=== PATIENT | female | born 1995 | race Caucasian/White ===

== ENCOUNTER 2024-03-27 20:24 | Emergency (ER) | payer MEDICAID, SELFPAY ==
[2024-03-27 20:25] VITALS: BP 138/90; PULSE 89; RESP 20; TEMP 36.9; O2SAT 100; BMI 29.0
[2024-03-27 21:00] VITALS: BP 130/89; PULSE 75; O2SAT 99
[2024-03-27 21:30] VITALS: BP 124/91; PULSE 68; O2SAT 99
--- NOTE | 2024-03-27 21:50 | ED_ITS ---
Discharge Plan Disposition Patient Disposition: Home, Self-Care Condition: Good Prescriptions Prescriptions: New ondansetron 4 mg tablet,disintegrating 4 mg PO Q6H PRN (Reason: nausea and vomiting) Qty: 10 0RF Referrals Follow up/Referrals: Kj Castellanos DO [Staff Physician] - See instructions (establish care) Provider,Referral, [Primary Care Provider] - See instructions Activity Restrictions/Add. Instructions Additional Instructions/Restrictions: You were evaluated in the ER and are appropriate for discharge at this time. Take the prescribed ondansetron (Zofran) if needed for nausea, vomiting. Drink plenty of water, you can also drink Gatorade, Pedialyte, or other electrolyte drinks. Make an appointment with Dr. Kj Castellanos's office for primary care. You have been referred to his office. You can also call [phone] to establish care with OB here. Return to the ER with new, worsening, or otherwise concerning symptoms Clinical Impressions Clinical Impression: Nausea, vomiting, and diarrhea Instructions Patient Instructions: DI for Diarrhea and Traveler's Diarrhea -- Adult, DI for Diarrhea and Traveler's Diarrhea -- Child, DI for Nausea -- Adult, DI for Nausea -- Child Print Language Print Language: Jordanian Discharge ED Provider: Ronak Montalvo General Adult HPI <Ronak Montalvo MD - Last Filed: 03/27/24 23:11> General Chief complaint: Nausea/Vomiting/Diarrhea Stated complaint: vomiting,nausea,weakness,lower back pain Time Seen by Provider: 03/27/24 21:15 Mode of Arrival: Ambulatory Source of Information: Patient Limitations: No Limitations Description of Symptoms (Recalled from ER Triage Doc. by RN): sunday night pt began having nausea and vomitting and diarrhea. pt is reported generalized pain all over. History of Present Illness HPI narrative: Please note that above description of symptoms, in this electronic medical record under categorization of recalled from ER triage doctor by RN are reflective of an initial nursing assessment, however, is not reflective of my full history and physical exam that was personally taken and clarified. Consequentially, this preceding description of symptoms, which may include the patient's categorized chief complaint in the EMR, do not reflect my personal clinical impression, and the ultimate description of history of present illness and patient stated complaints should be deferred to this section of the note. Unless stated otherwise or congruent with this section of the note, additional signs, symptoms, or incongruence should be interpreted as inaccurate with my clinical impression. Related Data Previous Rx's ?Medication ?Instructions ?Recorded ondansetron 4 mg disintegrating 4 mg PO Q6H PRN nausea and 03/28/24 tablet vomiting #10 tabs Allergies Allergy/AdvReac Type Severity Reaction Status Date / Time No Known Allergies Allergy Verified 03/27/24 22:09 [facility] <Ronak Montalvo MD - Last Filed: 03/27/24 23:11> [facility] Disclaimer: The information contained in this section may have been updated after the patient was seen, as this information can be updated by other users. Social History (Updated 03/27/24 @ 23:11 by Ronak Montalvo MD) Smoking Status: Current some day smoker alcohol intake: never current occupational status: employed Travel in the last 8 weeks: None <Ronak Montalvo MD - Last Filed: 03/27/24 23:11> ROS Obtained: Yes All systems reviewed & no additional complaints except as documented Physical Exam <Ronak Montalvo MD - Last Filed: 03/27/24 23:11> General General appearance: alert Head Head exam: atraumatic and normocephalic Eye Eye exam: Present normal appearance, PERRL and EOMI Neck Neck exam: Present normal inspection, full ROM and trachea midline Respiratory Respiratory exam: Absent respiratory distress, wheezes, stridor, accessory muscle use or prolonged expiratory phase Cardiovascular Cardiovascular exam: Present other (Pulses equal symmetric in upper and lower extremities) Abdominal Exam Abdominal exam: Present soft; Absent distention, tenderness or pulsatile mass Extremities Exam Extremities exam: Absent edema Neurological Exam Neurological exam: Present alert, oriented X3 and CN II-XII intact; Absent motor sensory deficit Skin Skin exam: Present warm and dry; Absent diaphoresis or erythema Medical Decision Making <Ronak Montalvo MD - Last Filed: 03/27/24 23:11> Medical Records Medical records reviewed: Yes I reviewed the patient's medical records. Screening: Per USPSTF and CDC recommendations, given the prevalence of disease in our region, it is our hospital?s policy to screen for HIV and viral Hepatitis for all patients aged 18 and over and those with ongoing risk factors. Mo Inquiry Pt receiving controlled substance: No Mo was queried for this patient: No Vital Signs: 03/27/24 20:25 03/27/24 21:00 03/27/24 21:30 Temperature 98.4 F Temperature Source Oral Pulse Rate 75 68 Pulse Rate [Right] 89 Respiratory Rate 20 Blood Pressure 130/89 124/91 H Blood Pressure [Right Arm] 138/90 Blood Pressure Mean [Right Arm] 106 02 Sat by Pulse Oximetry 100 99 99 Oxygen Delivery Method Room Air Lab Data Lab Results 03/27/24 22:15: WBC 10.7, RBC 5.15, Hgb 15.3, Hct 45.1, MCV 87.6, MCH 29.7, MCHC 33.9, RDW 13.9, Plt Count 267, MPV 7.3 L, Neut % (Auto) 81.2 H, Lymph % (Auto) 11.6, [place] % (Auto) 6.0, Eos % (Auto) 0.4, Baso % (Auto) 0.8, Neut # (Auto) 8.7 H, Lymph # (Auto) 1.2, [place] # (Auto) 0.6, Eos # (Auto) 0.0, Baso # (Auto) 0.1, Sodium 137, Potassium 3.7, Chloride 99, Carbon Dioxide 26, Anion Gap 15.7 H, BUN 15, Creatinine 0.80, Estimated Creat Clear 135, Estimated GFR 85, Est GFR ( Amer) 103, Glucose 106 H, Calcium 9.0, Total Bilirubin 0.6, AST 47 H, ALT 22, Alkaline Phosphatase 73, Total Protein 8.1, Albumin 4.9, Globulin 3.2, Albumin/Globulin Ratio 1.5, Lipase 39, HCG, Quant < 2, Urine Color Yellow, Urine Appearance Clear, Urine pH 6.0, Ur Specific [place] >= 1.030, Urine Protein 1+ A , Urine Glucose (UA) Negative, Urine Ketones 3+, Urine Blood 2+ A, Urine Nitrate Negative, Urine Bilirubin Negative, Urine Urobilinogen 0.2, Ur Leukocyte Esterase Negative, Urine RBC 5-10, Urine WBC 3-5, Ur Squamous Epith Cells 5-10, Urine Bacteria 2+, Urine Mucus 1+ 03/27/24 22:15 03/27/24 22:15 Orders (Tests/Meds): ED MEDICATIONS Discontinued Medications Generic Name Dose Route Start Last Admin Trade Name Freq PRN Reason Stop Dose Admin Sodium Chloride 1,000 mls @ 999 mls/hr 03/27/24 21:48 03/27/24 22:11 Sod Chlor 0.9% 1000ml Bag IV 03/27/24 22:48 999 mls/hr .Q1H1M ONE Administration Ondansetron HCl 4 mg 03/27/24 21:48 03/27/24 22:11 Ondansetron 4mg/2ml Vial IV 03/27/24 21:49 4 mg ONCE ONE Administration Promethazine HCl 12.5 mg 03/27/24 23:34 03/27/24 23:38 Promethazine Hcl 12.5mg Tablet PO 03/27/24 23:35 12.5 mg ONCE ONE Administration ORDERS Category Date Time Status CBC w/Auto Diff [Complete Blood Count Auto Diff] Stat Lab 03/27/24 22:15 Completed CMP [Comprehensive Metabolic Panel] Stat Lab 03/27/24 22:15 Completed HCG,Quantitative Stat Lab 03/27/24 22:15 Completed Lipase Stat Lab 03/27/24 22:15 Completed UA [Urinalysis and Microscopic] Stat Lab 03/27/24 22:15 Completed Urine Culture Stat Micro 03/27/24 22:15 Received Medical Decision Narrative: 28-year-old female no relevant medical history presenting with vomiting. Patient states that she started vomiting 2 days ago, has also been having diarrhea. Nonbloody, nonbilious vomiting and nonbloody diarrhea. Has had too numerous to count episodes of both. Able to tolerate sips of water, but has not had more than a bottle of water in the last 48 hours. Coming in because she is unable tolerate any p.o. intake and has been feeling rundown. No urinary symptoms, abdominal pain, flank pain, fevers or chills, or any other concern. History was obtained via conversation with patient. On arrival, patient hemodynamically stable, alert, oriented x4, appropriate, GCS 15, moving all extremities spontaneously, pupils equal and reactive to light. Full physical exam performed and significant for uncomfortable appearing female in no acute distress. Abdomen soft, nontender, nondistended. Negative Jones sign. Patient has had appendectomy. No flank tenderness. No overlying skin changes. Differential includes gastritis, gastroenteritis, , pancreatitis, among others. Patient placed on continuous cardiac monitoring and continuous pulse ox with initial blood pressure 138/9, heart rate 89, saturation 100% on room. Patient was given Zofran and fluids for symptomatic management and correction of underlying abnormalities. Workup independently interpreted and significant for nonactionable CBC or chemistry. Lipase negative. Urinalysis with ketones, no evidence of UTI. Prior to hCG and definitive reevaluation, care handed off to oncoming physician. [employer] disclaimer Much of this encounter note is an electronic content director spoken language to printed text. Electronic content director of the spoken language may permit errors. Although I have reviewed the note, some errors may still exist. <Vanita Johnson MD - Last Filed: 03/28/24 00:12> Vital Signs: 03/27/24 20:25 03/27/24 21:00 03/27/24 21:30 Temperature 98.4 F Temperature Source Oral Pulse Rate 75 68 Pulse Rate [Right] 89 Respiratory Rate 20 Blood Pressure 130/89 124/91 H Blood Pressure [Right Arm] 138/90 Blood Pressure Mean [Right Arm] 106 02 Sat by Pulse Oximetry 100 99 99 Oxygen Delivery Method Room Air Lab Data Lab Results 03/27/24 22:15: WBC 10.7, RBC 5.15, Hgb 15.3, Hct 45.1, MCV 87.6, MCH 29.7, MCHC 33.9, RDW 13.9, Plt Count 267, MPV 7.3 L, Neut % (Auto) 81.2 H, Lymph % (Auto) 11.6, [place] % (Auto) 6.0, Eos % (Auto) 0.4, Baso % (Auto) 0.8, Neut # (Auto) 8.7 H, Lymph # (Auto) 1.2, [place] # (Auto) 0.6, Eos # (Auto) 0.0, Baso # (Auto) 0.1, Sodium 137, Potassium 3.7, Chloride 99, Carbon Dioxide 26, Anion Gap 15.7 H, BUN 15, Creatinine 0.80, Estimated Creat Clear 135, Estimated GFR 85, Est GFR ( Amer) 103, Glucose 106 H, Calcium 9.0, Total Bilirubin 0.6, AST 47 H, ALT 22, Alkaline Phosphatase 73, Total Protein 8.1, Albumin 4.9, Globulin 3.2, Albumin/Globulin Ratio 1.5, Lipase 39, HCG, Quant < 2, Urine Color Yellow, Urine Appearance Clear, Urine pH 6.0, Ur Specific [place] >= 1.030, Urine Protein 1+ A , Urine Glucose (UA) Negative, Urine Ketones 3+, Urine Blood 2+ A, Urine Nitrate Negative, Urine Bilirubin Negative, Urine Urobilinogen 0.2, Ur Leukocyte Esterase Negative, Urine RBC 5-10, Urine WBC 3-5, Ur Squamous Epith Cells 5-10, Urine Bacteria 2+, Urine Mucus 1+ Orders (Tests/Meds): ED MEDICATIONS Discontinued Medications Generic Name Dose Route Start Last Admin Trade Name Jh PRN Reason Stop Dose Admin Sodium Chloride 1,000 mls @ 999 mls/hr 03/27/24 21:48 03/27/24 22:11 Sod Chlor 0.9% 1000ml Bag IV 03/27/24 22:48 999 mls/hr .Q1H1M ONE Administration Ondansetron HCl 4 mg 03/27/24 21:48 03/27/24 22:11 Ondansetron 4mg/2ml Vial IV 03/27/24 21:49 4 mg ONCE ONE Administration Promethazine HCl 12.5 mg 03/27/24 23:34 03/27/24 23:38 Promethazine Hcl 12.5mg Tablet PO 03/27/24 23:35 12.5 mg ONCE ONE Administration ORDERS Category Date Time Status CBC w/Auto Diff [Complete Blood Count Auto Diff] Stat Lab 03/27/24 22:15 Completed CMP [Comprehensive Metabolic Panel] Stat Lab 03/27/24 22:15 Completed HCG,Quantitative Stat Lab 03/27/24 22:15 Completed Lipase Stat Lab 03/27/24 22:15 Completed UA [Urinalysis and Microscopic] Stat Lab 03/27/24 22:15 Completed Urine Culture Stat Micro 03/27/24 22:15 Received Medical Decision Narrative: 28-year-old female no relevant medical history presenting with vomiting. Patient states that she started vomiting 2 days ago, has also been having diarrhea. Nonbloody, nonbilious vomiting and nonbloody diarrhea. Has had too numerous to count episodes of both. Able to tolerate sips of water, but has not had more than a bottle of water in the last 48 hours. Coming in because she is unable tolerate any p.o. intake and has been feeling rundown. No urinary symptoms, abdominal pain, flank pain, fevers or chills, or any other concern. History was obtained via conversation with patient. On arrival, patient hemodynamically stable, alert, oriented x4, appropriate, GCS 15, moving all extremities spontaneously, pupils equal and reactive to light. Full physical exam performed and significant for uncomfortable appearing female in no acute distress. Abdomen soft, nontender, nondistended. Negative Jones sign. Patient has had appendectomy. No flank tenderness. No overlying skin changes. Differential includes gastritis, gastroenteritis, , pancreatitis, among others. Patient placed on continuous cardiac monitoring and continuous pulse ox with initial blood pressure 138/9, heart rate 89, saturation 100% on room. Patient was given Zofran and fluids for symptomatic management and correction of underlying abnormalities. Workup independently interpreted and significant for nonactionable CBC or chemistry. Lipase negative. Urinalysis with ketones, no evidence of UTI. Prior to hCG and definitive reevaluation, care handed off to oncoming physician. [employer] disclaimer Much of this encounter note is an electronic content director spoken language to printed text. Electronic content director of the spoken language may permit errors. Although I have reviewed the note, some errors may still exist. Johnson: Upon my assumption of care patient is stable. She states she is having mild nausea again. She has only been able to tolerate a sip of water. Oral Phenergan was administered to the patient. I reviewed labs which are reassuring with no leukocytosis, no actionable abnormalities on CMP, ketonuria consistent with mild dehydration and volume losses but no findings of urinary tract infection. test negative On reevaluation after Phenergan, patient has tolerated oral intake, drinking most of a bottle of water. She states she feels improved. She is appropriate for discharge at this time. Patient preferred to be prescribed Zofran since Phenergan made her sleepy. I believe this is appropriate. Patient does not have primary care since she recently moved here, I referred her to Dr. Castellanos to establish care. Patient was given instructions on symptomatic management, follow up instructions, and return precautions for the emergency department. Patient indicated understanding and was discharged in stable condition. Critical Care <Ronak Montalvo MD - Last Filed: 03/27/24 23:11> Critical Care Time Critical Care Time: No
[2024-03-27] MEDS: 0.9 % SODIUM CHLORIDE 1000ML 1,000 ML 999 ML IV (22:11)
[2024-03-27] MEDS: ONDANSETRON 4MG/2ML VIAL 4 MG IV (22:11)
[2024-03-27 22:24] LABS: Microscopic, Urine URINE MICROSCOPIC (MICROSCOPIC)
[2024-03-27 22:28] LABS: Appearance,Urine CLEAR (Clear); Blood, Urine 2+ (Negative); Color,Urine YELLOW (Yellow); Glucose,Urine (UA) Negative (Negative); Ketones,Urine 3+ (Negative); Leukocyte Esterase,Urine Negative (Negative); Nitrate,Urine Negative (Negative); Protein,Urine 1+ (Negative); Specific Gravity, Urine >= 1.030 (1.005-1.030); Urobilinogen,Urine 0.2 EU/dl (0.2)
[2024-03-27 22:29] LABS: Bilirubin,Urine Negative (Negative)
[2024-03-27 22:36] LABS: Basophils # 0.1 K/mm3 (0-0.2); Basophils % 0.8 % (0.1-2.0); Eosinophils % 0.4 % (0.1-12.0); Hematocrit 45.1 % (37.0-47.0); Hemoglobin 15.3 g/dL (12.2-16.2); Lymphocytes # 1.2 K/mm3 (0.7-4.5); Lymphocytes % 11.6 % (10-50); Mean Corpuscular HGB Conc 33.9 g/dL (31.8-35.4); Mean Corpuscular Hemoglobin 29.7 pg (27.0-31.2); Mean Corpuscular Volume 87.6 fl (81-99); Mean Platelet Volume 7.3 fl (7.4-10.4); Monocytes # 0.6 K/mm3 (0.1-1.0); Neutrophils # 8.7 K/mm3 (1.8-7.8); Neutrophils % 81.2 % (37.0-80.0); Platelet Count 267 K/mm3 (142-424); Red Blood Count 5.15 M/mm3 (4.20-5.40); Red Cell Distribution Width 13.9 % (11.5-17.5); White Blood Count 10.7 K/mm3 (4.8-10.8)
[2024-03-27 22:53] LABS: Bacteria,Urine 2+ /lpf; Mucus,Urine 1+ /lpf
[2024-03-27 22:54] LABS: Albumin Level 4.9 g/dl (3.5-5.0); Chloride 99 mmol/L (98-107); Potassium 3.7 mmoL/L (3.5-5.1); Sodium 137 mmol/L (136-145)
[2024-03-27 22:56] LABS: Alanine Aminotransferase 22 U/L (12-78); Aspartate Amino Transferase 47 U/L (14-36); Bilirubin,Total 0.6 mg/dl (0.2-1.3); Blood Urea Nitrogen 15 mg/dl (7-17); Creatinine Clearance Estimated 135 mL/min (50-200); Estimated Glomerular Filt Rate 85 ml/min (>60); GFR (African American) 103 ML/MIN (>60)
[2024-03-27 22:57] LABS: Albumin/Globulin Ratio 1.5 (1.1-1.8); Alkaline Phosphatase 73 U/L (38-126); Anion Gap 15.7 mEq/L (5-15); Carbon Dioxide 26 mmol/L (22.0-30.0); Globulin 3.2 g/dL (1.3-3.2); Glucose 106 mg/dl (74-100); Lipase 39 U/L (23-300); Total Protein,Serum 8.1 g/dl (6.3-8.2)
[2024-03-27 23:16] LABS: HCG,Quantitative < 2 mIU/ml (0-5.42)
[2024-03-27] MEDS: PROMETHAZINE HCL 12.5MG TABLET 12.5 MG PO (23:38)
[2024-03-28 00:10] VITALS: BP 135/76; PULSE 66; RESP 20; TEMP 36.8; O2SAT 98
== END 2024-03-28 00:16 | disposition home or self-care (01) ==
PROVIDERS: Emergency Provider Emergency Medicine
DX: R11.2 Nausea with vomiting, unspecified (principal); R19.7 Diarrhea, unspecified
CPT/HCPCS: 80053; 81001; 83690; 84702; 85025; 87086; 96361; 96374; 99284; J2405; J7030

== ENCOUNTER 2024-04-06 23:54 | Emergency (ER) | payer MEDICAID, SELFPAY ==
[2024-04-06 23:55] VITALS: BP 151/86; PULSE 84; RESP 16; TEMP 36.5; O2SAT 99; BMI 29.0
--- NOTE | 2024-04-06 23:56 | [facility].EDGENADL ---
Discharge Plan Prescriptions Prescriptions: New ondansetron HCl 4 mg tablet 4 mg PO Q8H PRN (Reason: nausea and vomiting) 5 Days Qty: 30 0RF Referrals Follow up/Referrals: Provider,Referral, [Primary Care Provider] - See instructions Activity Restrictions/Add. Instructions Additional Instructions/Restrictions: Please follow-up with your primary care doctor for recheck of your liver enzymes, they are mildly elevated today. Please take Zofran as needed for nausea and vomiting, consider [id number] Tums, Maalox, Pepto-Bismol etc. Please return to the emergency department if you develop any new or worsening symptoms or become concerned for your health. Clinical Impressions Clinical Impression: Epigastric abdominal pain, Elevated liver enzymes Instructions Patient Instructions: DI for Acute Abdominal Pain Print Language Print Language: Kinyarwanda Discharge ED Provider: Matt Sol Adult HPI General Chief complaint: Abdominal Pain Stated complaint: pain in abd Time Seen by Provider: 04/06/24 23:56 History of Present Illness HPI narrative: 28-year-old female presents for epigastric pressure sensation. She reports that she had a GI illness a couple weeks ago that lasted approximately 1 week with associated nausea vomiting and diarrhea. She has been doing better for the last week. Tonight she developed some epigastric discomfort with some nausea but no vomiting. She denies any right upper quadrant pain she denies any flank pain denies any dysuria, urinary frequency urgency etc. No fever at home. No prior surgical history. Related Data Previous Rx's ?Medication ?Instructions ?Recorded ondansetron HCl 4 mg tablet 4 mg PO Q8H PRN nausea and 04/07/24 vomiting 5 days #30 tabs Allergies Allergy/AdvReac Type Severity Reaction Status Date / Time No Known Allergies Allergy Verified 03/27/24 22:09 [facility] Disclaimer: The information contained in this section may have been updated after the patient was seen, as this information can be updated by other users. Social History Smoking Status: Never smoker alcohol intake: never current occupational status: employed Travel in the last 8 weeks: None ROS Obtained: Yes All systems reviewed & no additional complaints except as documented Physical Exam General General appearance: alert and in no apparent distress Head Head exam: atraumatic and normocephalic Eye Eye exam: Present normal appearance, PERRL and EOMI ENT ENT exam: Present normal oropharynx and normal external ear exam Neck Neck exam: Present normal inspection and full ROM Chest Chest inspection: Present normal inspection and symmetric chest wall rise; Absent tenderness Respiratory Respiratory exam: Present normal lung sounds bilaterally; Absent respiratory distress Cardiovascular Cardiovascular exam: Present regular rate and normal rhythm Abdominal Exam Abdominal exam: Present soft and tenderness (Minimal, epigastric. No right upper quadrant tenderness); Absent distention or guarding Extremities Exam Extremities exam: Present normal inspection; Absent edema or joint swelling Back Exam Back exam: Present normal inspection; Absent tenderness Neurological Exam Neurological exam: Present alert and oriented X3; Absent motor sensory deficit Psychiatric Psychiatric exam: Present normal affect and normal mood Skin Skin exam: Present warm, dry and normal color Lymphatic Lymphatic Findings: no adenopathy Medical Decision Making Medical Records Medical records reviewed: Yes I reviewed the patient's medical records. Screening: Per USPSTF and CDC recommendations, given the prevalence of disease in our region, it is our hospital?s policy to screen for HIV and viral Hepatitis for all patients aged 18 and over and those with ongoing risk factors. Mo Inquiry Pt receiving controlled substance: No Mo was queried for this patient: No Vital Signs: 04/06/24 23:55 04/07/24 00:13 04/07/24 00:56 Temperature 97.7 F 97.9 F Temperature Source Oral Oral Pulse Rate 69 67 Pulse Rate [Left] 84 Respiratory Rate 16 16 Blood Pressure 129/86 134/80 Blood Pressure [Right Arm] 151/86 H Blood Pressure Mean [Right Arm] 107 Blood Pressure Source Automatic Cuff Blood Pressure Source [Right Arm] Automatic Cuff Blood Pressure Position Supine Blood Pressure Position [Right Arm] Sitting 02 Sat by Pulse Oximetry 99 97 Oxygen Delivery Method Room Air Room Air Lab Data Lab results reviewed: Yes I reviewed the patient's lab results. Lab Results 04/07/24 00:08: WBC 8.0, RBC 4.78, Hgb 13.9, Hct 40.9, MCV 85.5, MCH 29.1, MCHC 34.0, RDW 14.1, Plt Count 315, MPV 7.0 L, Neut % (Auto) 50.9, Lymph % (Auto) 39.8, [place] % (Auto) 6.8, Eos % (Auto) 1.5, Baso % (Auto) 1.0, Neut # (Auto) 4.1, Lymph # (Auto) 3.2, [place] # (Auto) 0.5, Eos # (Auto) 0.1, Baso # (Auto) 0.1, Sodium 140, Potassium 3.8, Chloride 105, Carbon Dioxide 25, Anion Gap 13.8, BUN 4 L, Creatinine 0.70, Estimated Creat Clear 154, Estimated GFR 100, Est GFR ( Amer) 121, Glucose 107 H, Calcium 8.9, Total Bilirubin 0.5, AST 104 H, ALT 148 H, Alkaline Phosphatase 83, Total Protein 7.1, Albumin 4.3, Globulin 2.8, Albumin/Globulin Ratio 1.5, Lipase 131, Serum HCG, Qual Negative, HIV 1&2 Antibody Rapid Nonreactive 04/07/24 00:08 04/07/24 00:08 Orders (Tests/Meds): ED MEDICATIONS Discontinued Medications Generic Name Dose Route Start Last Admin Trade Name Freq PRN Reason Stop Dose Admin Acetaminophen 1,000 mg 04/06/24 23:59 04/07/24 00:08 Acetaminophen 500mg Tab PO 04/07/24 00:00 1,000 mg ONCE ONE Administration Belladonna Alkaloids 60 ml 04/06/24 23:59 04/07/24 00:07 [place]onna Alkaloids 60 Ml Ml PO 04/07/24 00:00 60 ml ONCE ONE Administration Ondansetron HCl 4 mg 04/06/24 23:59 04/07/24 00:07 Ondansetron 4mg/2ml Vial IV 04/07/24 00:00 4 mg ONCE ONE Administration ORDERS Category Date Time Status POCUS Point of Care (ER Only) Stat Exams 04/07/24 00:35 Ordered CBC w/Auto Diff [Complete Blood Count Auto Diff] Stat Lab 04/07/24 00:08 Completed CMP [Comprehensive Metabolic Panel] Stat Lab 04/07/24 00:08 Completed HCG Qualitative, Serum Stat Lab 04/07/24 00:08 Completed HIV (1&2) Antibody Rapid Stat Lab 04/07/24 00:08 Completed Hep C Ab with Reflex to RNA Stat Lab 04/07/24 00:08 Received Hepatitis Panel Stat Lab 04/07/24 00:08 Received Lipase Stat Lab 04/07/24 00:08 Completed Medical Decision Narrative: 28-year-old female, recently got over a weeklong GI illness, presents with epigastric discomfort this evening.. History was obtained via interactive discussion with patient, family. On arrival, patient is [afebrile, hemodynamically stable, satting appropriately, alert, oriented x4, GCS 15], moving all extremities spontaneously. Full physical exam performed and significant for minimal epigastric tenderness. No right upper quadrant tenderness. Differential includes but is not limited to gastritis, gastroenteritis, peptic ulcer disease, cholecystitis, choledocholithiasis,. Patient was given p.o. Tylenol, GI cocktail and IV Zofran for symptomatic management and correction of underlying abnormalities. Workup initiated including CBC CMP test lipase. Bedside ultrasound was performed by me and shows mildly enlarged gallbladder without stones or sludge, no pericholecystic fluid, no gallbladder wall thickening. On re-evaluation, patient reports marked symptomatic improvement. Laboratory workup independently interpreted by me and significant for normal lipase, negative , mildly elevated AST and ALT, normal alk phos, normal bilirubin, otherwise unremarkable. No leukocytosis.. CT abdomen and pelvis was considered, but deemed unnecessary due to negative ultrasound, negative lipase, benign abdominal exam.. Given patient history, exam and workup, patient's presentation most likely represents gastric irritation in the setting of recent GI illness. The underlying etiology of the patient's mild LFT elevation is unclear. No evidence of acute biliary pathology on labs or bedside ultrasound. A acute hep panel was sent. Patient was encouraged to follow-up with PCP for recheck of labs and further assessment. Return precautions given. Discharged with prescription for Zofran. Procedures Risk/Benefits of Procedure(s) Were Explained: Yes Limited Ultrasound Indication:: Limited RUQ ultrasound Indication: Epigastric abdominal pain Identified structures: -Gallbladder -Gallbladder wall -Liver Findings: Sonographic Jones sign: Absent Gallstones: Absent Sludge: Absent Pericholecystic fluid: Absent Maximal GB wall thickness (mm): [normal is </= 3mm] Normal Common bile duct width (mm): [normal is </= 6mm] Unable to visualize Gallbladder width (cm): [normal is < 4cm] Grossly normal Gallbladder length (cm): [normal is < 10cm] Grossly mildly enlarged Impression: Normal gallbladder without evidence of cholecystitis Images were saved to permanent archive The study was technically adequate CPT 70289-00 This study was performed by me, and I personally interpreted all images/videos. Critical Care Critical Care Time Critical Care Time: No
[2024-04-07] MEDS: BELLADONNA ALKALOIDS 60 ML ML PO (00:07)
[2024-04-07] MEDS: ONDANSETRON 4MG/2ML VIAL 4 MG IV (00:07)
[2024-04-07] MEDS: ACETAMINOPHEN 500MG TAB 1000 MG PO (00:08)
[2024-04-07 00:13] VITALS: BP 129/86; PULSE 69; O2SAT 97
[2024-04-07 00:20] LABS: Basophils # 0.1 K/mm3 (0-0.2); Eosinophils # 0.1 K/mm3 (0.0-0.4); Eosinophils % 1.5 % (0.1-12.0); Hematocrit 40.9 % (37.0-47.0); Hemoglobin 13.9 g/dL (12.2-16.2); Lymphocytes # 3.2 K/mm3 (0.7-4.5); Lymphocytes % 39.8 % (10-50); Mean Corpuscular Hemoglobin 29.1 pg (27.0-31.2); Mean Corpuscular Volume 85.5 fl (81-99); Monocytes # 0.5 K/mm3 (0.1-1.0); Monocytes % 6.8 % (1.7-9.3); Neutrophils # 4.1 K/mm3 (1.8-7.8); Neutrophils % 50.9 % (37.0-80.0); Platelet Count 315 K/mm3 (142-424); Red Blood Count 4.78 M/mm3 (4.20-5.40); Red Cell Distribution Width 14.1 % (11.5-17.5)
[2024-04-07 00:21] LABS: Albumin Level 4.3 g/dl (3.5-5.0); Chloride 105 mmol/L (98-107); Potassium 3.8 mmoL/L (3.5-5.1); Sodium 140 mmol/L (136-145)
[2024-04-07 00:24] LABS: Alanine Aminotransferase 148 U/L (12-78); Albumin/Globulin Ratio 1.5 (1.1-1.8); Alkaline Phosphatase 83 U/L (38-126); Anion Gap 13.8 mEq/L (5-15); Aspartate Amino Transferase 104 U/L (14-36); Bilirubin,Total 0.5 mg/dl (0.2-1.3); Blood Urea Nitrogen 4 mg/dl (7-17); Carbon Dioxide 25 mmol/L (22.0-30.0); Creatinine Clearance Estimated 154 mL/min (50-200); Estimated Glomerular Filt Rate 100 ml/min (>60); GFR (African American) 121 ML/MIN (>60); Globulin 2.8 g/dL (1.3-3.2); Lipase 131 U/L (23-300); Total Protein,Serum 7.1 g/dl (6.3-8.2)
[2024-04-07 00:25] LABS: Calcium 8.9 mg/dl (8.4-10.2); Glucose 107 mg/dl (74-100)
[2024-04-07 00:30] LABS: HCG Qualitative, Serum Negative (Negative)
[2024-04-07 00:56] VITALS: BP 134/80; PULSE 67; RESP 16; TEMP 36.6; O2SAT 97
[2024-04-07 01:29] LABS: HIV (1&2) Antibody Rapid NONREACTIVE (NONREACTIVE)
[2024-04-08 08:21] LABS: HBsAg Screen Negative (Negative); HCV Ab Non Reactive (Non Reactive); Hep A Ab, IGM Negative (Negative); Hep B Core Ab, IgM Negative (Negative)
== END 2024-04-07 00:56 | disposition home or self-care (01) ==
PROVIDERS: Emergency Provider Emergency Medicine
DX: R10.13 Epigastric pain (principal); R74.8 Abnormal levels of other serum enzymes; R11.0 Nausea
CPT/HCPCS: 80053; 80074; 83690; 84703; 85025; 86803; 87389; 96374; 99283; J2405

== ENCOUNTER 2024-04-15 15:43 | Outpatient (CLI) | payer MEDICAID, SELFPAY ==
[2024-04-15 17:02] LABS: Chloride 103 mmol/L (98-107)
[2024-04-15 17:03] LABS: Albumin Level 4.8 g/dl (3.5-5.0); Potassium 3.9 mmoL/L (3.5-5.1); Sodium 139 mmol/L (136-145)
[2024-04-15 17:05] LABS: Alanine Aminotransferase 78 U/L (12-78); Aspartate Amino Transferase 29 U/L (14-36); Blood Urea Nitrogen 7 mg/dl (7-17); Estimated Glomerular Filt Rate 119 ml/min (>60); GFR (African American) 144 ML/MIN (>60)
[2024-04-15 17:06] LABS: Albumin/Globulin Ratio 1.8 (1.1-1.8); Alkaline Phosphatase 76 U/L (38-126); Anion Gap 14.9 mEq/L (5-15); Bilirubin,Total 0.5 mg/dl (0.2-1.3); Calcium 9.3 mg/dl (8.4-10.2); Carbon Dioxide 25 mmol/L (22.0-30.0); Globulin 2.7 g/dL (1.3-3.2); Glucose 78 mg/dl (74-100); Total Protein,Serum 7.5 g/dl (6.3-8.2)
== END 2024-04-15 23:59 | disposition home or self-care (01) ==
LOC: LAB.DROPOF 04-16 07:09
PROVIDERS: PCP Internal Medicine; Visit Provider Internal Medicine
DX: Z00.00 Encounter for general adult medical examination without abnormal findings (principal)
CPT/HCPCS: 80053

== ENCOUNTER 2024-06-01 16:30 | Emergency (ER) | payer BC, MEDICAID, SELFPAY ==
[2024-06-01 16:51] VITALS: BP 126/73; PULSE 84; RESP 18; TEMP 36.6; O2SAT 99; BMI 30.7
--- NOTE | 2024-06-01 16:59 | EXP.UTC ---
Discharge Plan Disposition Patient Disposition: Home, Self-Care Condition: Good Prescriptions Prescriptions: New phenazopyridine 200 mg Tablet 200 mg PO TID 2 Days Qty: 6 0RF ondansetron 4 mg Tablet,Disintegrating 4 mg PO Q8H PRN (Reason: Nausea) Qty: 12 0RF nitrofurantoin monohyd/m-cryst [Macrobid] 100 mg Capsule 100 mg PO BID Qty: 10 0RF Rx Instructions: must administer with a meal/food No Action hydroxyzine HCl 25 mg tablet 75 mg PO TID PRN (Reason: anxiety) Qty: 30 2RF Rx Instructions: 1-3 tablets per dose as needed for anxiety ondansetron HCl 4 mg tablet 4 mg PO Q8H PRN (Reason: nausea and vomiting) 5 Days Qty: 30 0RF rizatriptan 10 mg tablet,disintegrating 10 mg PO ONCE PRN (Reason: migraine headache) Qty: 30 2RF Referrals Follow up/Referrals: Kj Castellanos DO [Primary Care Provider] - See instructions Activity Restrictions/Add. Instructions Additional Instructions/Restrictions: Drink plenty of fluids. Take tylenol or ibuprofen for pain or fever. Take the medications as directed. Follow up with your regular doctor. GO TO THE ER FOR ANY WORSENING SYMPTOMS The pyridium will make your urine turn orange, this is an expected side effect. It will stain your clothes if it comes into contact with them. We will culture the urine. That will tell what bacteria is causing your infection and which antibiotics will treat it best.This test takes 3 days to complete. Clinical Impressions Clinical Impression: UTI (urinary tract infection) Instructions Patient Instructions: Urinary Tract Infection, DI for Urinary Tract Infection (UTI), Ondansetron, Phenazopyridine, Nitrofurantoin, Fluconazole Print Language Print Language: French Discharge ED Provider: Andi Fraga [facility] General Stated complaint: burning with urination Mode of Arrival: Ambulatory Source of Information: Patient Time Seen by Provider: 06/01/24 16:59 Description of Symptoms (Recalled from Triage Doc. by RN): UTI S/S HEENT Symptoms (Recalled from RN notes): No Resp Symptoms (Recalled from RN notes): No Skin Symptoms (Recalled from RN notes): No MS Symptoms (Recalled from RN notes): No Functional Status (Recalled from RN notes): WNL History of Present Illness Provider Complaint: she states that for the past 2 days she has been having worsening dysuria, urinary frequency and hesitancy. Related Data Previous Rx's ?Medication ?Instructions ?Recorded hydroxyzine HCl 25 mg tablet 75 mg (3 x 25 mg) PO TID PRN 04/15/24 anxiety #30 tabs ondansetron HCl 4 mg tablet 4 mg PO Q8H PRN nausea and 04/15/24 vomiting 5 days #30 tabs rizatriptan 10 mg disintegrating 10 mg PO ONCE PRN migraine 04/15/24 tablet headache #30 tabs nitrofurantoin 100 mg PO BID #10 caps 06/01/24 monohydrate/macrocrystals 100 mg capsule (Macrobid) ondansetron 4 mg disintegrating 4 mg PO Q8H PRN Nausea #12 tabs 06/01/24 tablet phenazopyridine 200 mg tablet 200 mg PO TID 2 days #6 tabs 06/01/24 Allergies Allergy/AdvReac Type Severity Reaction Status Date / Time No Known Allergies Allergy Verified 04/15/24 15:11 Worker's Comp Is this a Worker's Comp case?: No [facility] Disclaimer: The information contained in this section may have been updated after the patient was seen, as this information can be updated by other users. Surgical History (Updated 04/15/24 @ 15:13 by BON Jacobsen) Hx of wisdom tooth extraction Hx of appendectomy History of Social History (Updated 04/15/24 @ 15:14 by BON Jacobsen) Smoking Status: Never smoker alcohol intake: current alcohol intake frequency: holidays/special occasions only substance use type: denies use current occupational status: employed Travel in the last 8 weeks: None Have you lived/traveled outside [place] in past 30 days?: No Contact w/someone who lives/traveled outside [place] past 30 days?: No Exposure to someone with infectious disease in past 14 days?: No Do you have a fever (greater than 100.4 F or 38 C)?: No Have you tested positive for COVID-19: No Exposed to someone with COVID-19 in past 14 days?: No Do you have a sore throat?: No Do you have a cough?: No Do you have any weakness?: No Do you have any diarrhea?: No Are you experiencing any unusual bleeding?: No Do you have any muscle aches/pain?: No Do you have any abdominal pain?: No Are you experiencing loss of taste or smell?: No ROS Obtained: Yes All systems reviewed & no additional complaints except as documented Constitutional Constitutional: Reports system reviewed and no additional complaints, except as documented, Denies chills and Denies fever(s) Eyes Eyes: Denies eye discharge ENT Ears, Nose, Mouth, and Throat: Denies dysphagia, Denies sore throat and Denies throat swelling Cardiovascular Cardiovascular: Denies chest pain and Denies dyspnea Respiratory Respiratory: Denies chest congestion, Denies cough and Denies dyspnea Gastrointestinal Gastrointestingal: Denies abdominal pain, constipation, diarrhea, dysphagia, nausea or vomiting Genitourinary Female Genitourinary: Reports as per HPI, Reports dysuria, Reports urinary frequency, Denies urinary incontinence, Reports urinary hesitancy and Reports urinary urgency Musculoskeletal Musculoskeletal: Denies arthralgias and Reports back pain Integumentary/Breasts Skin/Breast: Denies rash Neurologic Neurologic: Denies paresthesias Allergic/Immunologic Allergic/Immunologic: Denies throat swelling Physical Exam General General appearance: alert and in no apparent distress Head Head exam: atraumatic, normocephalic and normal inspection Eye Eye exam: Present normal appearance, PERRL and EOMI ENT ENT exam: Present normal exam, normal oropharynx, mucous membranes moist, TM's normal bilaterally and normal external ear exam Neck Neck exam: Present normal inspection, full ROM and trachea midline; Absent meningismus or lymphadenopathy Chest Chest inspection: Present normal inspection and symmetric chest wall rise; Absent tenderness Respiratory Respiratory exam: Present normal lung sounds bilaterally; Absent respiratory distress Cardiovascular Cardiovascular exam: Present regular rate and normal rhythm; Absent JVD Abdominal Exam Abdominal exam: Present soft and normal bowel sounds; Absent distention, tenderness or guarding Extremities Exam Extremities exam: Present normal inspection, full ROM and normal capillary refill; Absent calf tenderness Back Exam Back exam: Present normal inspection and full ROM; Absent tenderness, CVA tenderness (R), CVA tenderness (L) or muscle spasm Neurological Exam Neurological exam: Present alert and oriented X3 Psychiatric Psychiatric exam: Present normal affect and normal mood Skin Skin exam: Present warm, dry, intact and normal color Lymphatic Lymphatic Findings: no adenopathy Medical Decision Making Medical Records Medical records reviewed: No I reviewed the patient's medical records. Screening: Per USPSTF and CDC recommendations, given the prevalence of disease in our region, it is our hospital?s policy to screen for HIV and viral Hepatitis for all patients aged 18 and over and those with ongoing risk factors. Mo Inquiry Pt receiving controlled substance: No Vital Signs: 06/01/24 16:51 Temperature 97.9 F Temperature Source Oral Pulse Rate [Left Radial] 84 Respiratory Rate 18 Blood Pressure [Left Arm] 126/73 Blood Pressure Mean [Left Arm] 90 02 Sat by Pulse Oximetry 99 Lab Data Lab results reviewed: Yes I reviewed the patient's lab results.
[2024-06-01 17:01] LABS: Apearance,Urine Cloudy (Clear); Bilirubin,Urine Negative (Negative); Blood, Urine 3+ (Negative); Color,Urine Yellow (Yellow); Glucose,Urine (UA) Negative (Negative); Ketones,Urine Negative (Negative); PH,Urine 5.5 (5.0-8.5); Protein,Urine Negative (Negative); Specific Gravity, Urine 1.025 (1.005-1.030); UTC Leukocyte Esterase,Urine 1+ (Negative); UTC Nitrate,Urine Negative (Negative); Urobilinogen,Urine 0.2 EU/dl (0.2)
[2024-06-01] MEDS: LIDOCAINE 1% 5ML PF VIAL IM (17:40)
[2024-06-01] MEDS: cefTRIAXone 1GM VIAL 1 GM IM (17:40)
[2024-06-01 18:09] VITALS: BP 126/73; PULSE 84; RESP 18; TEMP 36.6
== END 2024-06-01 18:19 | disposition home or self-care (01) ==
PROVIDERS: Emergency Provider Nurse Practitioner Family; PCP Internal Medicine
DX: N39.0 Urinary tract infection, site not specified (principal)
CPT/HCPCS: 81003; 87086; 87088; 87186; 99213; G0381; J0696

== ENCOUNTER 2024-09-18 20:44 | Emergency (ER) | payer MEDICAID, SELFPAY ==
[2024-09-18 20:51] VITALS: BP 137/76; PULSE 59; RESP 16; TEMP 36.6; O2SAT 100; BMI 31.4
--- NOTE | 2024-09-18 20:56 | PC.NURSE ---
Report recieved form Christopher RUIZ Pt has rash to legs. Skin pink warm and dry Resp full and easy Speech clear and appropriate.
--- NOTE | 2024-09-18 21:02 | ED_ITS ---
Discharge Plan Disposition Patient Disposition: Home, Self-Care Condition: Good Prescriptions Prescriptions: New cetirizine 10 mg capsule 10 mg PO DAILY Qty: 15 0RF hydrocortisone [Anti-Itch (HC)] 1 % cream 1 applic topical BID PRN (Reason: rash) Qty: 28.35 0RF No Action hydroxyzine HCl 25 mg tablet 75 mg PO TID PRN (Reason: anxiety) Qty: 30 2RF Rx Instructions: 1-3 tablets per dose as needed for anxiety rizatriptan 10 mg tablet,disintegrating 10 mg PO ONCE PRN (Reason: migraine headache) Qty: 30 2RF Referrals Follow up/Referrals: Kj Castellanos DO [Primary Care Provider] - See instructions Activity Restrictions/Add. Instructions Additional Instructions/Restrictions: Please follow up with your primary care provider in 2-3 days. Please return to ED if your symptoms worsen, change in location, change in severity, new symptoms develop or if you become concerned for your health. Clinical Impressions Clinical Impression: Contact dermatitis Print Language Print Language: Upper Sorbian Discharge ED Provider: Onofre Gregorio Adult [facility] General Chief complaint: Allergic Reaction Stated complaint: Rash on both legs Time Seen by Provider: 09/18/24 21:02 Mode of Arrival: Ambulatory Source of Information: Patient Description of Symptoms (Recalled from ER Triage Doc. by RN): Patient presents today with rash on bilateral lower legs. Patient reports walking in tall grass outside. Patient reports symptoms x1 week and has tried multiple creams with no relief for itching. Related Data Previous Rx's ?Medication ?Instructions ?Recorded hydroxyzine HCl 25 mg tablet 75 mg (3 x 25 mg) PO TID PRN 04/15/24 anxiety #30 tabs rizatriptan 10 mg disintegrating 10 mg PO ONCE PRN migraine 04/15/24 tablet headache #30 tabs cetirizine 10 mg capsule 10 mg PO DAILY #15 caps 09/18/24 hydrocortisone 1 % topical cream 1 applic topical BID PRN rash 09/18/24 (Anti-Itch (hydrocortisone)) #28.35 grams Allergies Allergy/AdvReac Type Severity Reaction Status Date / Time No Known Allergies Allergy Verified 07/23/24 08:53 [facility] Disclaimer: The information contained in this section may have been updated after the patient was seen, as this information can be updated by other users. Surgical History Hx of wisdom tooth extraction Hx of appendectomy History of Social History Smoking Status: Never smoker alcohol intake: current alcohol intake frequency: holidays/special occasions only substance use type: denies use current occupational status: employed Travel in the last 8 weeks?: None Have you lived/traveled outside [place] in past 30 days?: No Contact w/someone who lives/traveled outside [place] past 30 days?: No Exposure to someone with infectious disease in past 14 days?: No Do you have a fever (greater than 100.4 F or 38 C)?: No Have you tested positive for COVID-19?: No Exposed to someone with COVID-19 in past 14 days?: No Do you have a sore throat?: No Do you have a cough?: No Do you have any weakness?: No Do you have any diarrhea?: No Are you experiencing any unusual bleeding?: No Do you have any muscle aches/pain?: No Do you have any abdominal pain?: No Are you experiencing loss of taste or smell?: No Other Medical History Have you received the Pneumonia Vaccine: No ROS Obtained: Yes All systems reviewed & no additional complaints except as documented Physical Exam General General appearance: alert Respiratory Respiratory exam: Present normal lung sounds bilaterally Cardiovascular Cardiovascular exam: Present regular rate Neurological Exam Neurological exam: Present alert and oriented X3 Medical Decision Making Medical Records Screening: Per USPSTF and CDC recommendations, given the prevalence of disease in our region, it is our hospital?s policy to screen for HIV and viral Hepatitis for all patients aged 18 and over and those with ongoing risk factors. Mo Inquiry Pt receiving controlled substance: No Vital Signs: 09/18/24 20:51 Temperature 97.9 F Temperature Source Tympanic Pulse Rate [Right] 59 L Respiratory Rate 16 Blood Pressure [Right Arm] 137/76 Blood Pressure Mean [Right Arm] 96 02 Sat by Pulse Oximetry 100 Oxygen Delivery Method Room Air Medical Decision Narrative: Patient is a 20-year-old female with no significant past medical history who presents today for rash. 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 She noticed some itching yesterday and small red spots. Today it has enlarged with some blistering and drainage of clearish yellow-tinged fluid. She denies any fevers or spread of the redness. She has been trying triple antibiotic cream, Benadryl cream, triamcinolone 0.5% cream with some effect. She has not tried any oral medicines. In summary, this 28-year-old female presents to the emergency department today with rash. On initial evaluation patient is afebrile hemodynamically stable in no distress but on exam, has a erythematous, draining clear fluid with bullae over the distal aspect of the left tibia as well as the posterior aspect of the right foreleg. Has some tracings extending beyond the bulk of the rash, most consistent with poisoning from a leaf poison alaina or poison oak. Differential diagnosis includes but is not limited to contact otitis, irritant dermatitis, cellulitis. I considered antibiotics, however there is no significant erythema induration or warmth, this is most likely an irritant dermatitis, so antibiotics will be deferred. Stricter precautions discussed all questions or patient complaint at discharge. Will send with hydrocortisone cream, Zyrtec, Benadryl as needed At this time it was felt that the patient was safe to be discharged home. The patient was in agreement with this plan. The patient was given strict return precautions prior to being discharged from the emergency department. Critical Care Critical Care Time Critical Care Time: No
[2024-09-18 21:28] VITALS: BP 140/70; PULSE 62; RESP 20; TEMP 36.7; O2SAT 97
== END 2024-09-18 21:29 | disposition home or self-care (01) ==
PROVIDERS: Emergency Provider Emergency Medicine; PCP Internal Medicine
DX: L25.9 Unspecified contact dermatitis, unspecified cause (principal)
CPT/HCPCS: 99283

== ENCOUNTER 2025-04-19 19:33 | Emergency (ER) | payer OTHER, SELFPAY ==
--- OUTSIDE RECORDS SUMMARY | 2020-04-27 10:07 | XMS_ITS | Continuity of Care Document ---
Author Organization [facility] Address [address] [place] [id number] Phone Care Team Providers Care Student Name Role Phone Collins Blackwell MD Unavailable Unavailable Allergies, Adverse Reactions, Alerts Substance Reaction Status Criticality No Known Allergies Active No Inform ation Medications Medication Instructions Dosage Dose Quantity Effective Dates (start - stop) Status Indication Fill Status Comments 28 mg-0.8 mg tablet take 1 tablet by ORAL route every day at bedtime 5 MG 1 tablet 6 - Active Advance Directives Directive Yes / No Effective Date File Name No Information Encounters Encounter Description Practice Location Reason(s) For Visit Diagnoses Date Provider Encounter Disposition [facility], [address] [place] [address], [id number] , tel:[phone] [facility] No Information 0 Rishi Guadalupe. [address] [place] [address], [id number], [place]. tel:[phone] [facility], [address] [place] [address], [id number] , [place] tel:[phone] [facility] Encounter for other specified screeningEncoun ter for screening for uncertain datesMissed ab 0 Tayo Thomas. [address] [place] [address], [id number], [place]. tel:[phone] [facility], [address] [place] [address], [id number] , tel:[phone] [facility] visit (chief complaint) Encounter for routine follow-up 6 Tayo Thomas. [address] [place] [address], [id number], [place]. tel:[phone] [facility], [address] [place] [address], [id number] , [place] tel:[phone] [facility] post-op (chief complaint) Encounter for surgical aftercare following surgery of genitourinary systemDysuriaEn counter for routine follow-up 0 6 Tayo Thomas. [address] [place] [address], [id number], [place]. tel:[phone] [facility], [address] [place] [address], [id number] , [place] tel:[phone] [facility] No Information 6 Tayo Thomas. [address] [place] [address], [id number], [place]. [phone] [facility], [address] [place] [address], [id number] , [place] tel:[phone] [facility] Encounter for supervision of normal first in third trimester 6 Tayo Thomas. [address] [place] [address], [id number], [place]. [phone] [facility], [address] [place] [address], [id number] , [place] tel:[phone] [facility] Encounter for supervision of normal first in third trimester 8 6 No Information [facility], [address] [place] [address], [id number] , [place] tel:[phone] [facility] Encounter for supervision of normal first in third trimester 2 6 Tayo Thomas. [address] [place] [address], [id number], [place]. tel:[phone] [facility], [address] [place] [address], [id number] , [place] tel:[phone] [facility] Encounter for supervision of normal first in third trimester 6 Tayo Thomas. [address] [place] [address], [id number], [place]. tel:[phone] [facility], [address] [place] [address], [id number] , [place] tel:[phone] [facility] Encounter for supervision of normal first in third trimester 6 Tayo Thomas. [address] [place] [address], [id number], [place]. tel:[phone] [facility], [address] [place] [address], [id number] , [place] tel:[phone] [facility] Encounter for screening of motherEncounter for supervision of normal first in third trimester 6 Tayo Thomas. [address] [place] [address], [id number], [place]. tel:[phone] [facility], [address] [place] [address], [id number] , [place] tel:[phone] [facility] Encounter for supervision of normal first in third trimester 6 Tayo Thomas. [address] [place] [address], [id number], [place]. tel:[phone] [facility], [address] [place] [address], [id number] , [place] tel:[phone] [facility] Encounter for supervision of normal first in third trimester 6 Tayo Thomas. [address] [place] [address], [id number], [place]. tel:[phone] [facility], [address] [place] [address], [id number] , [place] tel:[phone] [facility] Encounter for supervision of normal first in third trimester 6 Tayo Thomas. [address] [place] [address], [id number], [place]. tel:[phone] [facility], [address] [place] [address], [id number] , [place] tel:[phone] [facility] Encounter for screening of motherVitamin D deficiencyEncou nter for supervision of normal first in second trimester 6 Tayo Thomas. [address] [place] [address], [id number], [place]. tel:[phone] [facility], [address] [place] [address], [id number] , [place] tel:[phone] [facility] Encounter for screening of motherVitamin D deficiencyEncou nter for supervision of normal first in second trimester 6 Tayo Thomas. [address] [place] [address], [id number], [place]. tel:[phone] [facility], [address] [place] [address], [id number] , [place] tel:[phone] [facility] OB ultrasound (chief complaint) Encounter for screening of mother 0 6 Rishi Guadalupe. [address] [place] [address], [id number], [place]. tel:[phone] [facility], [address] [place] [address], [id number] , [place] tel:[phone] [facility] Encounter for supervision of normal first in first trimester 6 Tayo Thomas. [address] [place] [address], [id number], [place]. tel:[phone] [facility], [address] [place] [address], [id number] , [place] tel:[phone] [facility] 1st OB visit (chief complaint) Encounter for screening of motherEncounter for supervision of normal first in first trimester9 weeks gestation of Tayo Thomas. [address] [place] [address], [id number], [place]. tel:[phone] Family History Family Member Type Diagnosis Age At Onset Mother Problem (finding) Alive and well Father Problem (finding) Alive and well Immunizations Vaccine Date Status Comments Tdap administered Source: [facility] unization Record Payers Payer name Insurance type Identifiers Authorization(s) Com [facility] [employer] Blue [employer]-PPO BL criber ID: [id number] Name: Coverage Status Eligibility Check on: UnknownRelationship to Subscriber: selfPayer Address: [address], [place], [address], [place]ayer Phone: Medicaid MC iber ID: [id number] Name: Coverage Status Eligibility Check on: UnknownRelationship to Subscriber: selfPayer Address: [address] [place] [address], [place], [address], [place]ayer Phone: [phone] [facility] Member ID:Subscriber ID:Group Name: Coverage Status Eligibility Check on: UnknownRelationship to Subscriber: parentPayer Address: [address], [place], [id number] Phone: [phone] Medicaid [facility] Member ID:Subscriber ID:Group Name: Coverage Status Eligibility Check on: UnknownRelationship to Subscriber: selfPayer Address: [address] [place] [address], [place], [address]Tmas[place] Phone: [phone] Social History Type Description Quantity Date Captured Comments Alcohol Use Details Unknown Caffeine Use Details Unknown Tobacco Use Status No Information Smoking Status No Information Sex Female Current Gender Female (finding) Chief Complaint And Reason For Visit No Information Plan Of Treatment Date Type Action Status Goal Tdap due Goal PAP. Due on due Goal Depression screening. Due on due Goal HPV (1st). Due on 0 due Referral Ordered: [facility] OB Biophys Profile Wo Nonstress Test ordered Referral Ordered: [facility] OB 1st trimester dating <14 Weeks Transabdominal ordered History Of Present Illness Encounter Date Complaint History Of Prese nt Illness post-op The patient repo rts no pain. The patient is not using pain medication. The patient reports no complications with the wound. The patient can ambulate with assistance. There are no indwelling devices. Associated symptoms include urinary difficulty. Pertinent negatives include abdominal pain, chills, constipation, diarrhea, fever and nausea. Additional information: No issues with pain. Some spotting only. No issues with bladder or bowel fxn. well. Seeing Dr. Blackewll for baby care for now; will switch to [employer] at 8wks. Weight down over 20+ pounds. Hasn't driven yet. Back to work in February. Doesn't need BC at this time. OB ultrasound FOS. LMP 5 EDC 12/23/15 G1 1st OB visit Had been with fi jay' for about 2 years. Home tests x4 positive. Occas cramps. Had mastalgia, but this has resolved last week. Some nausea, no emesis. No BC for about 2 years. FOB age 25; he has a daughter who is 5 yo. Has had UTIs in the past Functional Status Date Description Comments No Information Instructions Date Instruction Additional Infor khalif at 10+ wks by L MP measuring 9 wks EGA by u/s today with a missed ABD/w pt these findings; u/s done first thing in the visit.Expct vs surgical D and C reviewed as options.Rh positive.Prefers excpt mgmt. D/w pt parameters for bleeding, pain to RTC clinic, hospital.Plan f/u in 2 wks to see how doing and if it hasn't happened by then, plan to reconsider D and C.Support offered.20 min, all counseling. Related to Encounter for other specified screening 20 yo WF here f or pp visit s/p primary LTCS. No pap as less than age 21. UTD with Tetanus, GC/CT screening. Declines flu vaccine. Related to Encounter for routine follow-up Urinalysis ordered. Treat as indicated. Related to Dysuria 20 yo WF here f or post op visit, 2 wks s/p primary LTCS. Doing well overall. No issues with incision; baby doing well. RTC in a month for full PP visit. Plan for contraception: none needed at this time. Related to Encounter for surgical aftercare following surgery of genitourinary system 19 yo WF here a t 9-10 wks EGA for first ob visit. Physical, OB labs, education given. Continue daily PNV. Flu vaccine: declines. Size equal to dates on u/s today. Ob care reviewed. Plan f/u in a month Related to Encounter for screening of mother Assessments Type Assessment Date No Information
[2025-04-19 19:36] VITALS: BP 157/103; PULSE 76; RESP 16; TEMP 36.9; O2SAT 99; BMI 32.3
[2025-04-19 19:52] LABS: Microscopic, Urine URINE MICROSCOPIC (MICROSCOPIC)
--- NOTE | 2025-04-19 19:53 | CT_ITS ---
PROCEDURE INFORMATION: Exam: CT Abdomen And Pelvis With Contrast Exam date and time: 04/19/2025 8:39 PM Age: 29 years old Clinical indication: Abdominal pain TECHNIQUE: Imaging protocol: Computed tomography of the abdomen and pelvis with contrast. Radiation optimization: All CT scans at this facility use at least one of these dose optimization techniques: automated exposure control; mA and/or kV adjustment per patient size (includes targeted exams where dose is matched to clinical indication); or iterative reconstruction. Contrast material: ISOVUE; Contrast volume: 75 ml; Contrast route: IV; COMPARISON: No relevant prior studies available. FINDINGS: Liver: Normal. No mass. Gallbladder and biliary ducts: Normal. No calcified stones. No ductal dilation. Pancreas: Normal. No ductal dilation. Spleen: Normal. No splenomegaly. Adrenal glands: Normal. No mass. Kidneys and ureters: Normal. No hydronephrosis. Stomach and bowel: Unremarkable. No obstruction. No mucosal thickening. Appendix: Appendectomy Intraperitoneal space: Unremarkable. No free air. No significant fluid collection. Vasculature: Unremarkable. No abdominal aortic aneurysm. Lymph nodes: Unremarkable. No enlarged lymph nodes. Urinary bladder: Unremarkable as visualized. Reproductive: 4 cm left ovarian cyst. Bones/joints: Unremarkable. No acute fracture. Soft tissues: Unremarkable. IMPRESSION: No acute findings. 4 cm left ovarian cyst.
--- NOTE | 2025-04-19 19:54 | XR_ITS ---
PROCEDURE INFORMATION: Exam: XR Chest Exam date and time: 04/19/2025 8:42 PM Age: 29 years old Clinical indication: Shortness of breath; Additional info: Short of breath TECHNIQUE: Imaging protocol: Radiologic exam of the chest. Views: 1 view. COMPARISON: CT ABDOMEN PELVIS W CON 04/19/2025 8:39 PM FINDINGS: Lungs: Unremarkable. No consolidation. Pleural spaces: Unremarkable. No pleural effusion. No pneumothorax. Heart/Mediastinum: Unremarkable. No cardiomegaly. Bones/joints: Unremarkable. IMPRESSION: No acute findings.
--- NOTE | 2025-04-19 19:57 | ED_ITS ---
<Statement entered by Nelda Mcdonnell DO - 04/19/25 21:57> I was consulted by the KIMBERLY, and we discussed the complexity of problems being addressed. I approve the treatment and management plan for this patient's care in the emergency department, thus performing a substantial portion of the medical decision making. Nelda Mcdonnell DO Discharge Plan Disposition Chief Complaint: Nausea/Vomiting/Diarrhea Prescriptions Prescriptions: No Action hydroxyzine HCl 25 mg tablet 75 mg PO TID PRN (Reason: anxiety) Qty: 30 2RF Rx Instructions: 1-3 tablets per dose as needed for anxiety rizatriptan 10 mg tablet,disintegrating 10 mg PO ONCE PRN (Reason: migraine headache) Qty: 30 2RF cetirizine 10 mg capsule 10 mg PO DAILY Qty: 15 0RF hydrocortisone [Anti-Itch (HC)] 1 % cream 1 applic topical BID PRN (Reason: rash) Qty: 28.35 0RF Referrals Follow up/Referrals: Kj Castellanos DO [Primary Care Provider, Family Practice] - See instructions Instructions Patient Instructions: DI for Diarrhea and Traveler's Diarrhea in Adults, DI for Diarrhea and Traveler's Diarrhea in Children, DI for Nausea in Adults, DI for Nausea in Children Print Language Print Language: Mac[place] Discharge ED Provider: Nelda Mcdonnell General Adult HPI General Chief complaint: Nausea/Vomiting/Diarrhea Stated complaint: vomiting,nausea,low back pain Time Seen by Provider: 04/19/25 19:36 Mode of Arrival: Ambulatory Source of Information: Patient and Spouse Description of Symptoms (Recalled from ER Triage Doc. by RN): patient presents for N/V hat started last night and also states she has abdominal pain. denies urinary or bowel issues. last bowel movement 2 days ago, LMP sunday. she rates the abdominal cramping a 4-5/10. she took zofran alst night and it didnt help. she states the pain is epigastric and at times radiates medially down to her umbilicus. History of Present Illness HPI narrative: 29-year-old female presents to the ED today for complaint of nausea and vomiting that started last night. She said she has had no food at all today a small amount of water. She says she has had low back pain for about a week. She has had no fevers. Last Sunday she did have a night where she was sick and her temp was up and down. She has not had any diarrhea. She does have abdominal pain 4-5 out of 10. She says the pain is epigastric. Related Data Previous Rx's ?Medication ?Instructions ?Recorded hydroxyzine HCl 25 mg tablet 75 mg (3 x 25 mg) PO TID PRN 04/15/24 anxiety #30 tabs rizatriptan 10 mg disintegrating 10 mg PO ONCE PRN selwyn rinku 04/15/24 tablet headache #30 tabs cetirizine 10 mg capsule 10 mg PO DAILY #15 caps 06/14 hydrocortisone 1 % topical cream 1 applic topical BID PRN rash 09/18/24 (Anti-Itch (hydrocortisone)) #28.35 grams Allergies Allergy/AdvReac Type Severity Reaction Status Date / Time No Known Allergies Allergy Verified 07/23/24 08:53 [facility] Disclaimer: The information contained in this section may have been updated after the patient was seen, as this information can be updated by other users. Surgical History Hx of wisdom tooth extraction Hx of appendectomy History of Social History Smoking Status: Never smoker alcohol intake: current alcohol intake frequency: holidays/special occasions only substance use type: denies use current occupational status: employed Travel in the last 8 weeks?: None Have you lived/traveled outside [place] in past 30 days?: No Contact w/someone who lives/traveled outside [place] past 30 days?: No Exposure to someone with infectious disease in past 14 days?: No Do you have a fever (greater than 100.4 F or 38 C)?: No Have you tested positive for COVID-19?: No Exposed to someone with COVID-19 in past 14 days?: No Do you have a sore throat?: No Do you have a cough?: No Do you have any weakness?: No Do you have any diarrhea?: No Are you experiencing any unusual bleeding?: No Do you have any muscle aches/pain?: No Do you have any abdominal pain?: No Are you experiencing loss of taste or smell?: No Other Medical History Have you received the Pneumonia Vaccine: No ROS Obtained: Yes Systems reviewed as appropriate & no additional complaints except as documented Constitutional Constitutional: Reports as per HPI Physical Exam General General appearance: alert Head Head exam: normocephalic Eye Eye exam: Present PERRL and EOMI ENT ENT exam: Present normal oropharynx and mucous membranes moist Neck Neck exam: Present full ROM and trachea midline Respiratory Respiratory exam: Present normal lung sounds bilaterally Cardiovascular Cardiovascular exam: Present regular rate, normal rhythm, normal heart sounds, +S1 and +S2 Abdominal Exam Abdominal exam: Present soft and normal bowel sounds Abdominal tenderness: Present epigastrium Extremities Exam Extremities exam: Present normal inspection and full ROM Back Exam Back exam: Present normal inspection, CVA tenderness (R) and CVA tenderness (L) Neurological Exam Neurological exam: Present alert and oriented X3 Skin Skin exam: Present warm and dry Medical Decision Making Medical Records Screening: Per USPSTF and CDC recommendations, given the prevalence of disease in our region, it is our hospital?s policy to screen for HIV and viral Hepatitis for all patients aged 18 and over and those with ongoing risk factors. Mo Inquiry Pt receiving controlled substance: No Mo was queried for this patient: No Vital Signs: 04/19/25 19:36 Temperature 98.5 F Temperature Source Oral Pulse Rate [Right Radial] 76 Respiratory Rate 16 Blood Pressure [Right Arm] 157/103 H Blood Pressure Mean [Right Arm] 121 Blood Pressure Source [Right Arm] Automatic Cuff Blood Pressure Position [Right Arm] Sitting 02 Sat by Pulse Oximetry 99 Oxygen Delivery Method Room Air Lab Data Lab Results 04/19/25 19:43: Urine Color Yellow, Urine Appearance Clear, Urine pH 6.0, Ur Specific [place] 1.020, Urine Protein 1+ A, Urine Glucose (UA) Negative, Urine Ketones 1+, Urine Blood 2+ A, Urine Nitrate Negative, Urine Bilirubin Negative, Urine Urobilinogen 0.2, Ur Leukocyte Esterase Negative, Urine RBC 5-10, Urine WBC Occasional, Ur Squamous Epith Cells 5-10, Urine Bacteria Trace, Urine HCG, Qual Negative 04/19/25 20:05: SARS-CoV-2 (PCR) Not detected, Influenza A Untype (PCR) Not detected, Influenza Type B (PCR) Not detected 04/19/25 20:20: WBC 14.9 H, RBC 4.39, Hgb 12.2, Hct 36.3 L, MCV 82.7, MCH 27.8, MCHC 33.6, RDW 13.8, Plt Count 328, MPV 9.6, Neut % (Auto) 80.2 H, Lymph % (Auto) 14.7, [place] % (Auto) 4.1, Eos % (Auto) 0.6, Baso % (Auto) 0.2, Neut # (Auto) 11.9 H, Lymph # (Auto) 2.2, [place] # (Auto) 0.6, Eos # (Auto) 0.1, Baso # (Auto) 0.0, Sodium 142, Potassium 3.5, Chloride 105, Carbon Dioxide 24, Anion Gap 16.5 H, BUN 9, Creatinine 0.80, Estimated Creat Clear 149, Estimated GFR 85, Est GFR ( Amer) 103, Glucose 97, Calcium 9.2, Magnesium 1.9, Total Bilirubin 0.5, AST 25, ALT 17, Alkaline Phosphatase 75, Troponin I < 0.01, Total Protein 8.2, Albumin 4.8, Globulin 3.4 H, Albumin/Globulin Ratio 1.4, Lipase 57 04/19/25 20:20 04/19/25 20:20 Orders (Tests/Meds): ED MEDICATIONS Generic Name Dose Route Start Last Admin Trade Name Freq PRN Reason Stop Dose Admin Sodium Chloride 8 ml 04/19/25 19:53 Sodium Chloride 0.9% 10ml Vial IV 05/19/25 19:52 NEEDED PRN dilute pepcid Sodium Chloride 10 ml 04/19/25 20:45 04/19/25 20:46 Sodium Chloride 0.9% 10ml Syr (Rad Only) IV 05/19/25 20:44 10 ml NEEDED PRN Administration Maintain IV Site Discontinued Medications Generic Name Dose Route Start Last Admin Trade Name Freq PRN Reason Stop Dose Admin Acetaminophen 1,000 mg 04/19/25 19:53 04/19/25 20:17 Acetaminophen 1,000mg/100ml Vial IV 04/19/25 19:54 1,000 mg ONCE ONE Administration Famotidine 20 mg 04/19/25 19:53 04/19/25 20:18 Famotidine 20mg/2ml Vial IV 04/19/25 19:54 20 mg ONCE ONE Administration Sodium Chloride 1,000 mls @ 999 mls/hr 04/19/25 19:53 04/19/25 20:17 Sod Chlor 0.9% 1000ml Bag IV 04/19/25 20:53 999 mls/hr .Q1H1M ONE Administration Iopamidol 75 ml 04/19/25 20:45 04/19/25 20:45 Iopamidol-370 (76%);100ml Bottle IV 04/19/25 20:46 75 ml ONCE ONE Administration Ketorolac Tromethamine 30 mg 04/19/25 21:11 04/19/25 21:31 Ketorolac 30mg/Ml Vial IV 04/19/25 21:12 30 mg ONCE ONE Administration Ondansetron HCl 4 mg 04/19/25 19:57 04/19/25 20:18 Ondansetron 4mg/2ml Vial IV 04/19/25 19:58 4 mg ONCE ONE Administration ORDERS Category Date Time Status CT abdomen pelvis w con Stat Cat Scan 04/19/25 19:53 Completed Chest XR -- portable [XR chest portable] Stat Exams 04/19/25 19:54 Completed CBC [Complete Blood Count Auto Diff] Stat Lab 04/19/25 20:20 Completed Comprehensive Metabolic Panel Stat Lab 04/19/25 20:20 Completed Lipase Stat Lab 04/19/25 20:20 Completed Magnesium Stat Lab 04/19/25 20:20 Completed Rapid PCR Covid and Flu A/B Stat Lab 04/19/25 20:05 Completed Trop I [Troponin I] Stat Lab 04/19/25 20:20 Completed Troponin I Q3H Lab 04/19/25 23:00 Ordered Troponin I Q3H Lab 04/20/25 02:00 Ordered Urinalysis and Microscopic Stat Lab 04/19/25 19:43 Completed Urine , HCG Qual. Stat Lab 04/19/25 19:43 Completed Medical Decision Narrative: patient is a 29-year-old female presenting to the emergency department for evaluation of epigastric pain and vomiting last night. Patient is hemodynamically stable and nontoxic-appearing upon arrival, afebrile. Differential diagnosis includes viral illness versus flu, COVID. Workup will be conducted with hematologic labs, specific imaging. Initial inventions include crystalloid bolus, analgesics, antibiotics. Patient has elevated white count.Patient has a 14.9 white count which I feel like may be due to her vomiting. Her electrolytes are normal, BUN and creatinine are normal mag was normal troponin was less than 0.01. Urine showed 1+ protein and 2+ blood, she is on her. COVID and flu are negative. Imaging has not been read at this time.CT scan showed a 4 cm left ovarian cyst but otherwise no acute findings. I still think this is a viral illness may be a gastroenteritis. I talked to her about following up with Dr. Castellanos about the ovarian cyst. Patient does not exhibit lower abdominal pain she has more epigastric type pain. I do not believe this is torsion as her pain does not fit with the picture of torsion. Patient comfortable at this time and drinking starry. Patient will be discharged with Phenergan. Patient safe for discharge home with close follow- up. Critical Care Critical Care Time Critical Care Time: No
[2025-04-19 20:08] LABS: Bilirubin,Urine Negative (Negative); Color,Urine YELLOW (Yellow); Glucose,Urine (UA) Negative (Negative); Ketones,Urine 1+ (Negative); Leukocyte Esterase,Urine Negative (Negative); PH,Urine 6.0 (5.0-8.5); Protein,Urine 1+ (Negative); Specific Gravity, Urine 1.020 (1.005-1.030); Urobilinogen,Urine 0.2 EU/dl (0.2)
[2025-04-19 20:08] LABS: Coronavirus 19, PCR Not Detected (NotDetected); Influenza A, PCR Not Detected (NotDetected); Influenza B, PCR Not Detected (NotDetected)
[2025-04-19 20:10] LABS: Urine Pregnancy, HCG Qual. Negative (Negative)
[2025-04-19] MEDS: 0.9 % SODIUM CHLORIDE 1000ML 1,000 ML 999 ML IV (20:17)
[2025-04-19] MEDS: ACETAMINOPHEN 1,000MG/100ML VIAL 1000 MG IV (20:17)
[2025-04-19] MEDS: FAMOTIDINE 20MG/2ML VIAL 20 MG IV (20:18)
[2025-04-19] MEDS: ONDANSETRON 4MG/2ML VIAL 4 MG IV (20:18)
[2025-04-19 20:24] LABS: Bacteria,Urine Trace /lpf; WBC,Urine Occasional #/hpf (0-3)
[2025-04-19 20:27] LABS: Hematocrit 36.3 % (37.0-47.0); Hemoglobin 12.2 g/dL (12.2-16.2); Immature Granulocytes % 0.2 %; Mean Corpuscular HGB Conc 33.6 g/dL (31.8-35.4); Mean Corpuscular Hemoglobin 27.8 pg (27.0-31.2); Mean Corpuscular Volume 82.7 fl (81-99); Nucleated Red Blood Cells % 0 %; Platelet Count 328 K/mm3 (142-424); Red Blood Count 4.39 M/mm3 (4.20-5.40); Red Cell Distribution Width-SD 41.6 fL; White Blood Count 14.9 K/mm3 (4.8-10.8)
[2025-04-19 20:34] LABS: Albumin Level 4.8 g/dl (3.5-5.0); Chloride 105 mmol/L (98-107); Potassium 3.5 mmoL/L (3.5-5.1); Sodium 142 mmol/L (136-145)
[2025-04-19 20:36] LABS: Blood Urea Nitrogen 9 mg/dl (7-17); Creatinine Clearance Estimated 149 mL/min (50-200); Creatinine,Serum 0.80 mg/dl (0.52-1.04); Estimated Glomerular Filt Rate 85 ml/min (>60); GFR (African American) 103 ML/MIN (>60)
[2025-04-19 20:37] LABS: Alanine Aminotransferase 17 U/L (12-78); Albumin/Globulin Ratio 1.4 (1.1-1.8); Alkaline Phosphatase 75 U/L (38-126); Anion Gap 16.5 mEq/L (5-15); Aspartate Amino Transferase 25 U/L (14-36); Bilirubin,Total 0.5 mg/dl (0.2-1.3); Calcium 9.2 mg/dl (8.4-10.2); Carbon Dioxide 24 mmol/L (22.0-30.0); Globulin 3.4 g/dL (1.3-3.2); Glucose 97 mg/dl (74-100); Lipase 57 U/L (23-300); Magnesium 1.9 mg/dl (1.6-2.3); Total Protein,Serum 8.2 g/dl (6.3-8.2)
[2025-04-19] MEDS: IOPAMIDOL-370 (76%);100ML BOTTLE 75 ML IV (20:45)
[2025-04-19] MEDS: SODIUM CHLORIDE 0.9% 10ML SYR (RAD ONLY) 10 ML IV (20:46)
[2025-04-19 20:55] LABS: Troponin I < 0.01 ng/ml (0.00-0.034)
[2025-04-19] MEDS: KETOROLAC 30MG/ML VIAL 30 MG IV (21:31)
--- NOTE | 2025-04-19 21:48 | PC.NURSE ---
Pt given crackers and sprite for PO challenge
[2025-04-19 21:53] VITALS: BP 118/80; PULSE 62; RESP 16; TEMP 36.7; O2SAT 99
== END 2025-04-19 21:54 | disposition home or self-care (01) ==
PROVIDERS: Nurse Practitioner; Emergency Provider Student in an Organized Health Care Education/Training Program; PCP Internal Medicine
DX: R10.13 Epigastric pain (principal); K52.9 Noninfective gastroenteritis and colitis, unspecified; R11.2 Nausea with vomiting, unspecified; N83.202 Unspecified ovarian cyst, left side
CPT/HCPCS: 71045; 74177; 80053; 81001; 81025; 83690; 83735; 84484; 85025; 87636; 96361; 96374; 96375; 99285; J0131; J1308; J1885; J2405; J7030; Q9967